=== PATIENT | male | born 1950 | race Caucasian/White ===

== ENCOUNTER → 2019-12-11 | Outpatient (CLI) | payer MEDICARE ==
--- NOTE | 2019-12-11 15:44 | CARD ---
MR#: [id number] Date of Study: 12/11/2019 Ordering Physician: HOLLIE GARCIA, Referring Physician: HOLLIE GARCIA, Tech: Kim Farrell APPROVED REPORT EXAM: Two-dimensional and M-mode echocardiogram with Doppler and color Doppler. Other Information Quality : AverageHR: 60bpm INDICATION Hypertension/HCVD 2D DIMENSIONS RVDd3.5 (2.9-3.5cm)Left Atrium(2D)4.0 (1.6-4.0cm) IVSd1.1 (0.7-1.1cm)Aortic Root(2D)3.6 (2.0-3.7cm) LVDd5.3 (3.9-5.9cm)LVOT Diameter2.3 (1.8-2.4cm) PWd1.1 (0.7-1.1cm)LVDs2.9 (2.5-4.0cm) FS (%) 44.6 %SV102.5 ml LVEF(%)75.5 (>50%) Aortic Valve AoV Peak Arnie.103.9cm/sAoV VTI22.7cm AO Peak GR.4.3mmHgLVOT Peak Arnie.79.9cm/s LVOT VTI 17.42cmAO Mean GR.2mmHg LB (VMAX)2.36tr7QNN (VTI)3.29cm2 Mitral Valve MV E Jtaunwig32.8cm/sMV E Peak Gr.140mmHg MV DECEL [id number] A Eabdpayn89.5cm/s MV E Mean Gr.1mmHgMV GVS29mf E/A Ratio1.0MVA (PHT)2.73cm2 TDI E/Lateral E'7.2E/Medial E'7.6 Pulmonary Valve PV Peak Tccwitkl62.4cm/sPV Peak Grad.2mmHg Tricuspid Valve TR P. Xnjpqako489tk/sRAP YKWNHBCL1bdQo TR Peak Gr.16sjLiNPXL27bgLn Pulmonary Vein S1 Yqongrbj43.2cm/sD2 Wifvleya71.8cm/s PVa [id number] LEFT VENTRICLE The left ventricle is normal size. There is borderline concentric left ventricular hypertrophy. The l eft ventricular systolic function is normal and the ejection fraction is within normal range. The Eje ction Fraction is 55%. There is normal LV segmental wall motion. Transmitral Doppler flow pattern is Grade I-abnormal relaxation pattern. RIGHT VENTRICLE The right ventricle is normal size. There is normal right ventricular wall thickness. The right ventr icular systolic function is normal. ATRIA The left atrium size is normal. The right atrium is borderline dilated. The interatrial septum is int act with no evidence for an atrial septal defect or patent foramen ovale as noted on 2-D or Doppler i maging. AORTIC VALVE The aortic valve is normal in structure and function. Doppler and Color Flow revealed no significant aortic regurgitation. There is no significant aortic valvular stenosis. MITRAL VALVE The mitral valve is normal in structure and function. There is no evidence of mitral valve prolapse. There is no mitral valve stenosis. Doppler and Color-flow revealed mild mitral regurgitation. TRICUSPID VALVE The tricuspid valve is normal in structure and function. Doppler and Color Flow revealed trace tricus pid regurgitation with an estimated PAP of 35 mmHg. There is no tricuspid valve stenosis. PULMONIC VALVE The pulmonic valve is not well visualized. Doppler and Color Flow revealed no pulmonic valvular regur gitation. There is no pulmonic valvular stenosis. GREAT VESSELS The aortic root is normal in size. The IVC was not visualized. PERICARDIAL EFFUSION There is no evidence of significant pericardial effusion. Critical Notification Critical Value: No <Conclusion> The left ventricular systolic function is normal and the ejection fraction is within normal range. Th e Ejection Fraction is 55%. There is normal LV segmental wall motion. Signed by : Hollie Garcia, Electronically Approved : 12/11/2019 15:43:40
== END ==
LOC: EDSEX → EDUNIT# 13:00 → ECHO 13:09
PROVIDERS: ATTEND Internal Medicine Cardiovascular Disease
DX: I10 Essential (primary) hypertension (principal); R55 Syncope and collapse; I48.0 Paroxysmal atrial fibrillation
CPT/HCPCS: 93306